=== PATIENT | female | born 1985 | race Caucasian/White ===

== ENCOUNTER 2019-01-23 04:21 | Emergency (ER) | payer MEDICAID ==
[~2019-01-23] VITALS: Ht 157.5 cm; Wt 57.2 kg
[~2019-01-23 04:21] MED LIST: LEVO150T7 PO
[2019-01-23 04:28] VITALS: BP 157/70; PULSE 86; RESP 16; Ht 157.5 cm; Wt 57.2 kg
--- NOTE | 2019-01-23 05:13 | ERD ---
ER Documentation Chief Complaint Chief Complaint SOB while sleeping HPI 33-year-old female with history of hypothyroidism for which she takes levothyroxine presents with complaint of feeling heart racing when she wakes up at night. States that the problem occurred last week after changing her levothyroxine dose to a lower dose. Thinks that the medication might not be reacting well with her. Denies any chest pain, diaphoresis, wheezing, re spiratory distress, dyspnea, hemoptysis, lower leg edema or erythema, history of clotting, history of syncope. ROS All systems reviewed and are negative except as per history of present illness. Medications Home Meds Reported Medications Levothyroxine Sodium* (Levothyroxine Sodium*) 150 Mcg Tablet, 150 MCG PO DAILY 04/10/12 Allergies Allergies: Coded Allergies: No Known Allergy (Verified , 04/10/12) PMhx/Soc History of Surgery: Yes () Anesthesia Reaction: No Hx Neurological Disorder: No Hx Respiratory Disorders: No Hx Cardiac Disorders: No Hx Psychiatric Problems: No Hx Miscellaneous Medical Probl: No (no known medical condition) Hx Alcohol Use: No Hx Substance Use: No Hx Tobacco Use: No Smoking Status: Never smoker FmHx Family History: No diabetes, No coronary disease, No other Physical Exam Vitals Vital Signs Date Temp Pulse Resp B/P (MAP) Pulse Ox O2 O2 Flow FiO2 Time Delivery Rate 01/23/19 97.6 86 16 157/70 100 04:28 (99) Physical Exam Const: No acute distress Head: Atraumatic Eyes: Normal Conjunctiva ENT: Normal External Ears, Nose and Mouth. Neck: Full range of motion. No meningismus. Resp: Clear to auscultation bilaterally Cardio: Regular rate and rhythm, no murmurs Abd: Soft, non tender, non distended. Normal bowel sounds Skin: No petechiae or rashes Back: No midline or flank tenderness Ext: No cyanosis, or edema Neur: Awake and alert Psych: Normal Mood and Affect Procedures/MDM EKG: Rate/Rhythm: Normal Sinus Rhythm QRS, ST, T-waves: No changes consistent w/ acute ischemia Impression: No evidence of ischemia or arrhythmia MDM: EKG WNL. I have low suspicion for acute coronary syndrome, pulmonary embolism, aortic dissection, AAA, pneumothorax, esophageal rupture, pericarditis, myocarditis, or pneumonia based on EKG, imaging, labs, patient history and exam. Patient advised to follow up with her primary regarding her suspicion that her new thyroid medication is causing the palpitations. Patient discharged with strict ER precautions. Patient advised to follow up with PMD. All questions answered at discharge. Departure Diagnosis: Primary Impression: Heart palpitations Condition: Sebastien TAYLORNAHUN Jan 23, 2019 05:13
== END 2019-01-23 06:08 | disposition home or self-care (01) ==
LOC: FTE 04:21
DX: R00.2 Palpitations (principal); E03.9 Hypothyroidism, unspecified
CPT/HCPCS: 93005; Z7502